=== PATIENT | male | born 1955 | race Hispanic/Latino ===

== ENCOUNTER 2018-07-18 21:35 | Emergency (ER) | payer OTHER ==
--- NOTE | 2018-07-18 21:44 | ERPHSYRPT ---
- History of Present Illness Time Seen by Provider: 07/18/18 21:35 Source: EMS Exam Limitations: clinical condition, other (patient is intubated, unresponsive , CPR in progress) Physician History: This is a 63-year-old male with history of atherosclerotic coronary artery disease high blood pressure diabetes. Who lives at the [facility]. Patient apparently became unresponsive at the [facility], and an out of consciousness. And was noted to have idioventricular rhythm at the present. Patient without palpable pulses at the present EKG showed an idiopathic rhythm at 31 bpm Patient was treated for cardiac arrest Medics were summoned Patient was intubated by medics CPR begun patient was given a total of 5 doses of epinephrine, 1 amp of bicarbonate and 1 amp of magnesium. Patient arrives with a interosseous in the right tibia. Patient unresponsive on arrival pupils fixed and dilated absent corneal reflex. Absent pulse. Patient with bilateral breath sounds with bag ventilation. Patient with no response to pain. Patient with asystole on monitor. Patient is continued with CPR and ACLS protocol in the emergency room. He received a total of 3 doses in the emergency room. Accu-Chek was checked it was noted to be 246. Patient without response to ACLS protocol. Patient arrival time 21:20. Code canceled 21:32. Patient has . Timing/Duration: today, other (just prior to arrival patient down 3 minutes prior to medic arriving at present.) Severity: severe Modifying Factors: Improves With: nothing Associated Symptoms: other (patient intubated CPR in progress no pulse no response to pain absent corneal reflex cannot answer review of systems) - Review of Systems All Other Systems: Unable due to condition (patient intubated, CPR in progress unresponsive.) - Past Medical History Cardiac History: Coronary Artery Disease, Hypertension Endocrine Medical History: Diabetes Type II - Nursing Vital Signs Nursing Vital Signs: Initial Vital Signs Temperature 97.7 F 07/18/18 21:39 Pulse Rate 0 L 07/18/18 21:39 Respiratory Rate 12 07/18/18 21:39 - Physical Exam General Appearance: other (Obese male unresponsive and intubated CPR in progress no pulse bilateral breath sounds with bag vention, no response to pain , absent corneal reflex) Eye Exam: other (pupils fixed and dilated) Ears, Nose, Throat Exam: other (endotracheal tube in place) Neck Exam: normal inspection, non-tender, supple, full range of motion Respiratory Exam: other (Bilateral breath sounds with bag ventilation) Cardiovascular Exam: other (Absent pulse, no heart sounds) Gastrointestinal/Abdomen Exam: other (mildly distended) Back Exam: normal inspection, normal range of motion, No CVA tenderness, No vertebral tenderness Extremity Exam: other (dressing in place left meneses several toes missing right foot changes of peripheral vascular disease) Neurologic Exam: other (patient unresponsive. Pupils fixed and dilated, absent corneal reflex GCS equals 3) Skin Exam: other (changes of peripheral vascular disease bilateral lower extremities) SpO2 Interpretation: hypoxic ( pulse oximetry unobtainable.) - Course Nursing assessment & vital signs reviewed: Yes - Progress Progress: unchanged Progress Note: 07/18/18 21:49 63-year-old male brought from the [facility] with complaint that the patient suddenly became unresponsive. Patient was noted to have idiopathic rhythm on EKG at the [facility] with no pulse heart rate at that time was 31 bpm from EKG. Patient with cardiac arrest CPR was begun medics were summoned. On arrival of the medics at the [facility] patient noted to have asystole. Absent pulse absent respiratory effort. Patient was intubated, interosseous line placed in the patient's right proximal tibia by medics. Patient received continuing CPR., ACS protocol including 5 doses of epinephrine 1 amp of bicarbonate one amp of magnesium. Patient arrives unresponsive endotracheal tube in place. Eyes fixed and dilated absent corneal reflex. No response to pain. Lungs bilateral breath sounds with bag ventilation. Heart absent heart sounds. Abdomen mildly distended. Extremities missing several toes on right foot (chronic )dressing in place left meneses. Changes of peripheral vascular disease lower extremities Neuro patient unresponsive absent corneal reflex pupils fixed and dilated no response to pain GCS equals 3. Patient with asystole on monitor had received 3 doses of epinephrine and continuing CPR in the emergency room per ACLS protocol. Patient arrived 21:20 Code discontinued 21:32 Patient 07/18/18 21:53 phone engineer has been notified and is on her way here. - Departure Time of Disposition: 22:30 Departure Disposition: Clinical Impression: Cardiac arrest, Respiratory arrest Condition: Critical Care Time: No Referrals: GWEN BULL DO [Primary Care Provider] -
[2018-07-18 21:53] VITALS: PULSE 0
== END 2018-07-18 22:45 | disposition expired ==
LOC: ED 21:35
DX: I46.9 Cardiac arrest, cause unspecified (principal); R09.2 Respiratory arrest; I25.10 Atherosclerotic heart disease of native coronary artery without angina pectoris; I10 Essential (primary) hypertension; E11.9 Type 2 diabetes mellitus without complications
CPT/HCPCS: 94799; 99283